=== PATIENT | male | born 1980 | race Two or more races ===

== ENCOUNTER 2021-08-17 01:03 | Inpatient (IN) | payer MEDICAID ==
[2021-08-17] VITALS (20 sets, daily range): BP systolic 96–152; BP diastolic 54–108
[~2021-08-17] VITALS: Ht 200.7 cm; Wt 190.1 kg
[2021-08-17] MEDS ORDERED: VANCOMYCIN 1GM/250ML 250 ML IV ONE ×2 (01:45)
[2021-08-17] MEDS ORDERED: DexAMETHasone SOD PHOS 10MG/1ML VIAL INJ IV ONE (01:45)
[2021-08-17] MEDS ORDERED: PIPERACILLIN-TAZO 4.5GM 100 ML IV ONE (01:45)
[2021-08-17] MEDS ORDERED: ETOMIDATE (2MG/ML) 20ML VIAL IV ONE ×2 (02:00→12:15)
[2021-08-17] MEDS ORDERED: SUCCINYLCHOLINE CHLORIDE 20 MG/ML 10ML VIAL IV ONE (02:00)
[2021-08-17 03:10] LABS: Basophils # (auto) 0 10 ^3/uL (0-0.2); Basophils % (auto) 0.1 % (0.0-2.0); Eosinophils # (auto) 0.1 10 ^3/uL (0-0.8); Eosinophils % (auto) 0.3 % (0.0-7.0); Hematocrit 46.2 % (41.0-53.0); Hemoglobin 15.1 g/dL (13.5-17.5); Lymphocytes # (auto) 1.2 10 ^3/uL (0.4-5.4); Lymphocytes % (auto) 6.9 % (10.0-50.0); Mean Corpuscular Hemoglobin 29.3 pg (28.0-32.0); Mean Corpuscular Hgb Conc. 32.8 g/dL (32.0-36.0); Mean Corpuscular Volume 89.3 fL (80.0-100.0); Monocytes # (auto) 1.3 10 ^3/uL (0-1.3); Monocytes % (auto) 7.4 % (0.0-12.0); Neutrophils # (auto) 14.7 10 ^3/uL (1.6-8.6); Neutrophils % (auto) 85.3 % (37.0-80.0); Nucleated Red Blood Cells % 0.8 %; Red Blood Cells 5.17 10^6/uL (4.5-5.90); Red Cell Distribution Width 16.4 % (11.8-14.3); White Blood Cell 17.2 10^3/uL (4.4-10.8)
[2021-08-17 03:27] LABS: Albumin 2.2 g/dL (3.4-5.0); BUN/Creatinine Ratio 14.9; Calcium 8.3 mg/dL (8.5-10.1); Potassium 4.5 mmol/L (3.5-5.1)
[2021-08-17 03:32] LABS: Bilirubin, Total 0.7 mg/dL (0.2-1.0); Total Protein 7.2 g/dL (6.4-8.2)
[2021-08-17] MEDS ORDERED: ROCURONIUM 10MG/ML 10ML VIAL IV ONE ×2 (11:50→12:15)
[2021-08-17] MEDS ORDERED: MIDAZOLAM DRIP 50 mg/50mL 50 ML IV ONE (11:50)
[2021-08-17] MEDS ORDERED: PROPOFOL 100 ML IV ONE (11:50)
[2021-08-17] MEDS: MIDAZOLAM DRIP 50 mg/50mL 50 ML IV SCH ×2 (12:23→23:32)
[2021-08-17] MEDS: PROPOFOL 100 ML IV SCH ×2 (12:23→23:32)
[2021-08-17] MEDS ORDERED: NITROGLYCERIN 0.4 MG SL TAB SL PRN ×2 (13:00→14:15)
[2021-08-17] MEDS ORDERED: MORPHINE SULFATE INJECTION 2 MG/ML SYRG IV PRN ×3 (13:00→14:15)
[2021-08-17] MEDS ORDERED: HEPARIN SODIUM (PORCINE) 5000 UNITS/ML 1ML VIAL IV ONE (13:15)
[2021-08-17] MEDS ORDERED: HEPARIN DRIP/D5W 100UNITS/ML 250 ML IV SCH (13:15)
[2021-08-17] MEDS ORDERED: ALBUTEROL SULF HFA 90MCG INH 200DOSE IN SCH (14:00)
[2021-08-17 14:06] LABS: Basophils # (auto) 0 10 ^3/uL (0-0.2); Basophils % (auto) 0.3 % (0.0-2.0); Eosinophils # (auto) 0 10 ^3/uL (0-0.8); Hematocrit 43.6 % (41.0-53.0); Hemoglobin 13.8 g/dL (13.5-17.5); Lymphocytes # (auto) 0.9 10 ^3/uL (0.4-5.4); Lymphocytes % (auto) 4.8 % (10.0-50.0); Mean Corpuscular Hemoglobin 28.1 pg (28.0-32.0); Mean Corpuscular Hgb Conc. 31.6 g/dL (32.0-36.0); Mean Corpuscular Volume 89.1 fL (80.0-100.0); Monocytes % (auto) 5.5 % (0.0-12.0); Neutrophils % (auto) 89.4 % (37.0-80.0); Nucleated Red Blood Cells % 0.1 %; Red Blood Cells 4.89 10^6/uL (4.5-5.90); Red Cell Distribution Width 16.5 % (11.8-14.3); White Blood Cell 17.9 10^3/uL (4.4-10.8)
[2021-08-17] MEDS ORDERED: HYDROcodone-ACET 5/325MG TAB PO PRN (14:15)
[2021-08-17] MEDS ORDERED: MORPHINE SULFATE 4 MG/ML SYR/VIAL IV PRN (14:15)
[2021-08-17] MEDS ORDERED: ONDANSETRON HCL 4 MG/2 ML VIAL IV PRN (14:15)
[2021-08-17] MEDS ORDERED: FAMOTIDINE (10MG/ML) 2ML VL IV ONE (14:15)
[2021-08-17] MEDS ORDERED: FUROSEMIDE 20 MG/2 ML VIAL IV ONE (14:15)
[2021-08-17] MEDS ORDERED: LORazepam 2MG/ML-1ML VIAL IV PRN (14:15)
[2021-08-17] MEDS ORDERED: ALBUMIN 25% 100 ML IV ONE (14:15)
[2021-08-17] MEDS ORDERED: LORazepam 0.5 MG TAB PO PRN (14:15)
[2021-08-17] MEDS ORDERED: DOCUSATE SOD 100 MG CAP PO PRN (14:15)
[2021-08-17] MEDS ORDERED: ALBUTEROL SULF HFA 90MCG INH 200DOSE IN PRN (14:15)
[2021-08-17] MEDS ORDERED: REMDESIVIR PER PHARMACY 0 ML IV SCH (14:15)
[2021-08-17] MEDS ORDERED: ALUM & MAG HYDROX-SIMETH LIQ(MAALOX) 30 ML PO PRN (14:15)
[2021-08-17] MEDS ORDERED: NOREPINEPHRINE 8 MG/250ML KIT 250 ML IV ONE (14:44)
[2021-08-17 15:03] LABS: INR 1.22 (0.9-1.15); Partial Thromboplastin Time 27.9 sec (23.6-33.0)
[2021-08-17] MEDS: NOREPINEPHRINE 8 MG/250ML KIT 250 ML IV SCH (15:40)
[2021-08-17 15:47] LABS: Albumin 1.9 g/dL (3.4-5.0); Anion Gap 6 (5-15); Blood Urea Nitrogen 27 mg/dL (7-18); Calcium 7.8 mg/dL (8.5-10.1); Carbon Dioxide 29 mmol/L (21-32); Chloride 106 mmol/L (98-107); Glucose 124 mg/dL (74-106); Potassium 5.1 mmol/L (3.5-5.1); Sodium 141 mmol/L (136-145)
[2021-08-17 15:56] LABS: Alanine Aminotransferase 33 U/L (16-61); Alkaline Phosphatase 64 U/L (45-117); Aspartate Aminotransferase 24 U/L (15-37); Bilirubin, Total 0.7 mg/dL (0.2-1.0); GFR African American 53 mL/min; GFR Non-African American 44 mL/min; Total Protein 6.9 g/dL (6.4-8.2)
[2021-08-17 15:56] LABS: Amphetamine Screen, Urine NEGATIVE (NEGATIVE); Barbiturate Scree,Urine NEGATIVE (NEGATIVE); Benzodiazephine Screen, Urine NEGATIVE (NEGATIVE); Cannabinoid Screen, Urine NEGATIVE (NEGATIVE); Cocaine Screen, Urine NEGATIVE (NEGATIVE); Opiate Scree,Urine NEGATIVE (NEGATIVE); Phencyclidine Screen, Urine NEGATIVE (NEGATIVE)
[2021-08-17 15:59] LABS: Urine Bacteria NONE SEEN /hpf (None Seen); Urine Blood 3+ /uL (Negative); Urine Hyaline Cast FEW /lpf (0 - 2); Urine Mucus FEW (None Seen); Urine Specific Gravity 1.025 (1.001-1.035); Urine WBC 11 /hpf (0 - 3)
[2021-08-17 16:01] LABS: Alcohol, Urine < 3.0 mg/dL (0-10)
[2021-08-17 16:05] LABS: Cholesterol 82 mg/dL (< 200); Triglycerides 183 mg/dL (< 150)
[2021-08-17 16:07] LABS: HDL Cholesterol 20 mg/dL (40-59); LDL Cholesterol 48 mg/dL (< 100)
[2021-08-17 16:08] LABS: Thyroid Stimulating Hormone 0.65 uIU/mL (0.358-3.74)
[2021-08-17 16:13] LABS: CRP High Sensitivity > 19.0 mg/dL (< 0.3)
[2021-08-17] MEDS: HEPARIN DRIP/D5W 100UNITS/ML 250 ML IV SCH (17:03)
[2021-08-17] MEDS ORDERED: REMDESIVIR PER PHARMACY IV SCH (20:00)
[2021-08-17] MEDS: CEFEPIME 1 GM in SODIUM CHL 0.9% 50 ML IV SCH (22:00)
[2021-08-17] MEDS: ALBUMIN 25% 100 ML IV SCH (22:00)
[2021-08-17] MEDS ORDERED: BUDESONIDE (INHALATION) 180 MCG IH IN SCH (22:00)
[2021-08-17] MEDS: FAMOTIDINE (10MG/ML) 2ML VL IV SCH (22:17)
[2021-08-17] MEDS: DOXYCYCLINE 100MG/250ML 250 ML IV SCH (22:17)
[2021-08-17] MEDS: fentaNYL Drip 2500mCg/250mlNS 250 ML IV SCH (23:34)
[2021-08-18] VITALS (98 sets, daily range): BP systolic 97–139; BP diastolic 58–87
[2021-08-18 00:08] LABS: INR 1.21 (0.9-1.15); Partial Thromboplastin Time 28.3 sec (23.6-33.0)
[2021-08-18] MEDS ORDERED: HEPARIN SODIUM (PORCINE) 5000 UNITS/ML 1ML VIAL IV ONE (01:45)
[2021-08-18] MEDS: MIDAZOLAM DRIP 50 mg/50mL 50 ML IV SCH ×2 (01:52→21:29)
[2021-08-18] MEDS: HEPARIN DRIP/D5W 100UNITS/ML 250 ML IV SCH ×2 (02:45→17:14)
[2021-08-18 05:13] LABS: Basophils # (auto) 0 10 ^3/uL (0-0.2); Basophils % (auto) 0.2 % (0.0-2.0); Eosinophils # (auto) 0.1 10 ^3/uL (0-0.8); Eosinophils % (auto) 0.3 % (0.0-7.0); Hematocrit 38.9 % (41.0-53.0); Hemoglobin 12.5 g/dL (13.5-17.5); Lymphocytes # (auto) 1.9 10 ^3/uL (0.4-5.4); Lymphocytes % (auto) 11.7 % (10.0-50.0); Mean Corpuscular Hemoglobin 28.2 pg (28.0-32.0); Mean Corpuscular Hgb Conc. 32.1 g/dL (32.0-36.0); Mean Corpuscular Volume 87.9 fL (80.0-100.0); Monocytes # (auto) 1.2 10 ^3/uL (0-1.3); Monocytes % (auto) 7.3 % (0.0-12.0); Neutrophils # (auto) 12.7 10 ^3/uL (1.6-8.6); Neutrophils % (auto) 80.5 % (37.0-80.0); Nucleated Red Blood Cells % 0.2 %; Red Blood Cells 4.42 10^6/uL (4.5-5.90); Red Cell Distribution Width 16.4 % (11.8-14.3); White Blood Cell 15.8 10^3/uL (4.4-10.8)
[2021-08-18] MEDS: FUROSEMIDE 20 MG/2 ML VIAL IV SCH ×2 (05:29→17:41)
[2021-08-18 05:31] LABS: Potassium 4.1 mmol/L (3.5-5.1)
[2021-08-18] MEDS: ALBUMIN 25% 100 ML IV SCH ×2 (05:31→14:15)
[2021-08-18 05:39] LABS: BUN/Creatinine Ratio 15.6; Bilirubin, Total 0.9 mg/dL (0.2-1.0); Calcium 7.9 mg/dL (8.5-10.1); Magnesium 2.5 mg/dL (1.6-2.6); Total Protein 6.4 g/dL (6.4-8.2); Uric Acid 8.6 mg/dL (3.5-7.2)
[2021-08-18] MEDS: PROPOFOL 100 ML IV SCH ×3 (06:02→22:33)
[2021-08-18] MEDS: CEFEPIME 1 GM in SODIUM CHL 0.9% 50 ML IV SCH ×3 (06:30→21:25)
[2021-08-18] MEDS: ASCORBIC ACID 500 MG TAB PO SCH (08:13)
[2021-08-18 09:04] LABS: INR 1.25 (0.9-1.15)
[2021-08-18] MEDS ORDERED: HEPARIN DRIP/D5W 100UNITS/ML 250 ML IV SCH (10:00)
[2021-08-18] MEDS ORDERED: levoFLOXacin 500MG 100 ML IV SCH (10:00)
[2021-08-18] MEDS ORDERED: DexAMETHasone SOD PHOS 10MG/1ML VIAL INJ IV SCH (10:00)
[2021-08-18] MEDS ORDERED: ZINC SULFATE 220mg CAP or TAB PO SCH (10:00)
[2021-08-18] MEDS ORDERED: CHOLECALCIFEROL (VITD3) 2,000 UNIT CAP/TAB PO SCH (10:00)
[2021-08-18] MEDS: DOXYCYCLINE 100MG/250ML 250 ML IV SCH ×2 (10:21→23:56)
[2021-08-18] MEDS: DexAMETHasone SOD PHOS 10MG/1ML VIAL INJ IV SCH (10:21)
[2021-08-18] MEDS: FAMOTIDINE (10MG/ML) 2ML VL IV SCH ×2 (10:21→22:06)
[2021-08-18] MEDS: ZINC SULFATE 220mg CAP or TAB PO SCH (10:22)
[2021-08-18] MEDS: CHOLECALCIFEROL (VITD3) 2,000 UNIT CAP/TAB PO SCH (10:22)
[2021-08-18] MEDS: ASCORBIC ACID 1,000 MG TAB PO SCH (10:22)
[2021-08-18] MEDS: IVERMECTIN 3 MG TAB PO SCH (10:22)
[2021-08-18] MEDS: NOREPINEPHRINE 8 MG/250ML KIT 250 ML IV SCH (15:00)
[2021-08-18 16:29] LABS: INR 1.2 (0.9-1.15); Partial Thromboplastin Time 42.7 sec (23.6-33.0)
[2021-08-18] MEDS: fentaNYL Drip 2500mCg/250mlNS 250 ML IV SCH (22:15)
[2021-08-18 23:36] LABS: INR 1.21 (0.9-1.15); Partial Thromboplastin Time 51.3 sec (23.6-33.0)
[2021-08-19] VITALS (102 sets, daily range): BP systolic 116–136; BP diastolic 61–84
[2021-08-19] MEDS: MIDAZOLAM DRIP 50 mg/50mL 50 ML IV SCH ×3 (00:36→20:26)
[2021-08-19] MEDS: HEPARIN DRIP/D5W 100UNITS/ML 250 ML IV SCH (02:13)
[2021-08-19] MEDS: PROPOFOL 100 ML IV SCH ×4 (02:13→21:37)
[2021-08-19] MEDS: CEFEPIME 1 GM in SODIUM CHL 0.9% 50 ML IV SCH ×2 (06:13→23:42)
[2021-08-19] MEDS: FUROSEMIDE 20 MG/2 ML VIAL IV SCH ×2 (06:13→18:00)
[2021-08-19 06:27] LABS: Basophils # (auto) 0 10 ^3/uL (0-0.2); Basophils % (auto) 0.2 % (0.0-2.0); Eosinophils # (auto) 0 10 ^3/uL (0-0.8); Hematocrit 35.8 % (41.0-53.0); Hemoglobin 11.6 g/dL (13.5-17.5); Lymphocytes # (auto) 1.9 10 ^3/uL (0.4-5.4); Lymphocytes % (auto) 10.8 % (10.0-50.0); Mean Corpuscular Hemoglobin 28.3 pg (28.0-32.0); Mean Corpuscular Hgb Conc. 32.4 g/dL (32.0-36.0); Mean Corpuscular Volume 87.2 fL (80.0-100.0); Monocytes # (auto) 1.1 10 ^3/uL (0-1.3); Monocytes % (auto) 6.1 % (0.0-12.0); Neutrophils # (auto) 14.3 10 ^3/uL (1.6-8.6); Neutrophils % (auto) 82.9 % (37.0-80.0); Red Blood Cells 4.11 10^6/uL (4.5-5.90); Red Cell Distribution Width 16.1 % (11.8-14.3); White Blood Cell 17.2 10^3/uL (4.4-10.8)
[2021-08-19 06:41] LABS: Albumin 2.4 g/dL (3.4-5.0); BUN/Creatinine Ratio 14.2; Calcium 8.5 mg/dL (8.5-10.1); Potassium 3.8 mmol/L (3.5-5.1)
[2021-08-19 06:43] LABS: Bilirubin, Total 1.1 mg/dL (0.2-1.0); Total Protein 6.9 g/dL (6.4-8.2)
[2021-08-19 06:46] LABS: INR 1.18 (0.9-1.15); Partial Thromboplastin Time 45.6 sec (23.6-33.0)
[2021-08-19] MEDS: ASCORBIC ACID 500 MG TAB PO SCH (08:25)
[2021-08-19] MEDS: DOXYCYCLINE 100MG/250ML 250 ML IV SCH ×2 (10:02→21:38)
[2021-08-19] MEDS: FAMOTIDINE (10MG/ML) 2ML VL IV SCH (10:02)
[2021-08-19] MEDS: DexAMETHasone SOD PHOS 10MG/1ML VIAL INJ IV SCH (10:02)
[2021-08-19] MEDS: ZINC SULFATE 220mg CAP or TAB PO SCH (10:03)
[2021-08-19] MEDS: CHOLECALCIFEROL (VITD3) 2,000 UNIT CAP/TAB PO SCH (10:03)
[2021-08-19] MEDS: ASCORBIC ACID 1,000 MG TAB PO SCH (10:03)
[2021-08-19] MEDS: IVERMECTIN 3 MG TAB PO SCH (10:03)
[2021-08-19 12:03] LABS: INR 1.16 (0.9-1.15)
[2021-08-19] MEDS: NOREPINEPHRINE 8 MG/250ML KIT 250 ML IV SCH (15:00)
[2021-08-19] MEDS ORDERED: ENOXAPARIN SOD 150 MG/1 ML SYRINGE SC ONE (15:30)
[2021-08-19] MEDS: fentaNYL Drip 2500mCg/250mlNS 250 ML IV SCH (21:45)
[2021-08-20] VITALS (101 sets, daily range): BP systolic 107–158; BP diastolic 59–92
[2021-08-20] MEDS: MIDAZOLAM DRIP 50 mg/50mL 50 ML IV SCH ×7 (00:08→20:00)
[2021-08-20] MEDS: PROPOFOL 100 ML IV SCH ×7 (00:09→20:00)
[2021-08-20] MEDS: ENOXAPARIN SOD 150 MG/1 ML SYRINGE SC SCH ×2 (03:23→15:00)
[2021-08-20 05:20] LABS: Basophils # (auto) 0 10 ^3/uL (0-0.2); Basophils % (auto) 0.3 % (0.0-2.0); Eosinophils # (auto) 0 10 ^3/uL (0-0.8); Hematocrit 35.5 % (41.0-53.0); Hemoglobin 11.7 g/dL (13.5-17.5); Lymphocytes # (auto) 1.6 10 ^3/uL (0.4-5.4); Mean Corpuscular Hgb Conc. 32.9 g/dL (32.0-36.0); Mean Corpuscular Volume 88.1 fL (80.0-100.0); Monocytes # (auto) 1.2 10 ^3/uL (0-1.3); Monocytes % (auto) 8.4 % (0.0-12.0); Neutrophils # (auto) 10.9 10 ^3/uL (1.6-8.6); Neutrophils % (auto) 79.3 % (37.0-80.0); Red Blood Cells 4.03 10^6/uL (4.5-5.90); Red Cell Distribution Width 16.3 % (11.8-14.3); White Blood Cell 13.8 10^3/uL (4.4-10.8)
[2021-08-20 05:36] LABS: Albumin 2.2 g/dL (3.4-5.0); Calcium 8.6 mg/dL (8.5-10.1); Potassium 4.5 mmol/L (3.5-5.1)
[2021-08-20 05:38] LABS: BUN/Creatinine Ratio 16.3
[2021-08-20 05:48] LABS: Bilirubin, Total 0.7 mg/dL (0.2-1.0)
[2021-08-20] MEDS: ZINC SULFATE 220mg CAP or TAB PO SCH (08:51)
[2021-08-20] MEDS: ASCORBIC ACID 1,000 MG TAB PO SCH (08:52)
[2021-08-20] MEDS: IVERMECTIN 3 MG TAB PO SCH (08:52)
[2021-08-20] MEDS: FAMOTIDINE (10MG/ML) 2ML VL IV SCH (08:53)
[2021-08-20] MEDS: CHOLECALCIFEROL (VITD3) 2,000 UNIT CAP/TAB PO SCH (08:54)
[2021-08-20] MEDS: DexAMETHasone SOD PHOS 10MG/1ML VIAL INJ IV SCH (08:54)
[2021-08-20] MEDS: ASCORBIC ACID 500 MG TAB PO SCH (08:54)
[2021-08-20] MEDS: DOXYCYCLINE 100MG/250ML 250 ML IV SCH ×2 (08:55→22:24)
[2021-08-20] MEDS: CEFEPIME 1 GM in SODIUM CHL 0.9% 50 ML IV SCH (09:00)
[2021-08-20] MEDS: NOREPINEPHRINE 8 MG/250ML KIT 250 ML IV SCH (15:00)
[2021-08-20] MEDS ORDERED: CEFTRIAXONE SODIUM 2 GM in D5W 5% 50 ML IV ONE (16:00)
[2021-08-20] MEDS: fentaNYL Drip 2500mCg/250mlNS 250 ML IV SCH (22:15)
[2021-08-21] VITALS (102 sets, daily range): BP systolic 94–152; BP diastolic 52–89
[2021-08-21] MEDS: PROPOFOL 100 ML IV SCH ×6 (03:00→20:55)
[2021-08-21] MEDS: MIDAZOLAM DRIP 50 mg/50mL 50 ML IV SCH ×5 (03:00→16:58)
[2021-08-21] MEDS: ENOXAPARIN SOD 150 MG/1 ML SYRINGE SC SCH ×2 (03:31→20:15)
[2021-08-21 04:21] LABS: Basophils # (auto) 0 10 ^3/uL (0-0.2); Basophils % (auto) 0.2 % (0.0-2.0); Eosinophils # (auto) 0.1 10 ^3/uL (0-0.8); Eosinophils % (auto) 0.7 % (0.0-7.0); Hematocrit 37.5 % (41.0-53.0); Hemoglobin 12.3 g/dL (13.5-17.5); Lymphocytes # (auto) 1.6 10 ^3/uL (0.4-5.4); Lymphocytes % (auto) 15.4 % (10.0-50.0); Mean Corpuscular Hgb Conc. 32.8 g/dL (32.0-36.0); Mean Corpuscular Volume 88.5 fL (80.0-100.0); Monocytes # (auto) 0.9 10 ^3/uL (0-1.3); Monocytes % (auto) 8.3 % (0.0-12.0); Neutrophils % (auto) 75.4 % (37.0-80.0); Nucleated Red Blood Cells % 0.1 %; Red Blood Cells 4.23 10^6/uL (4.5-5.90); Red Cell Distribution Width 16.5 % (11.8-14.3); White Blood Cell 10.7 10^3/uL (4.4-10.8)
[2021-08-21 04:37] LABS: Calcium 8.6 mg/dL (8.5-10.1); Potassium 4.4 mmol/L (3.5-5.1)
[2021-08-21 04:40] LABS: Albumin 2.1 g/dL (3.4-5.0); BUN/Creatinine Ratio 19.2
[2021-08-21 04:44] LABS: Total Protein 6.8 g/dL (6.4-8.2)
[2021-08-21] MEDS: FAMOTIDINE (10MG/ML) 2ML VL IV SCH (09:38)
[2021-08-21] MEDS: DexAMETHasone SOD PHOS 10MG/1ML VIAL INJ IV SCH (09:38)
[2021-08-21] MEDS: DOXYCYCLINE 100MG/250ML 250 ML IV SCH (09:39)
[2021-08-21] MEDS: CEFTRIAXONE SODIUM 2 GM in D5W 5% 50 ML IV SCH (09:39)
[2021-08-21] MEDS: IVERMECTIN 3 MG TAB PO SCH (09:40)
[2021-08-21] MEDS: ZINC SULFATE 220mg CAP or TAB PO SCH (09:40)
[2021-08-21] MEDS: ASCORBIC ACID 1,000 MG TAB PO SCH (09:40)
[2021-08-21] MEDS: CHOLECALCIFEROL (VITD3) 2,000 UNIT CAP/TAB PO SCH (09:41)
[2021-08-21] MEDS: NOREPINEPHRINE 8 MG/250ML KIT 250 ML IV SCH (15:00)
[2021-08-21] MEDS ORDERED: FUROSEMIDE 40 MG/4 ML VIAL IV ONE (17:00)
[2021-08-22] VITALS (101 sets, daily range): BP systolic 87–140; BP diastolic 46–89
[2021-08-22] MEDS: ENOXAPARIN SOD 150 MG/1 ML SYRINGE SC SCH ×2 (04:34→13:40)
[2021-08-22] MEDS: Jevity 1.2 Cal/Fiber 1 Liter GT SCH (04:35)
[2021-08-22 04:48] LABS: Basophils # (auto) 0 10 ^3/uL (0-0.2); Basophils % (auto) 0.2 % (0.0-2.0); Eosinophils # (auto) 0.1 10 ^3/uL (0-0.8); Eosinophils % (auto) 0.8 % (0.0-7.0); Hematocrit 40.3 % (41.0-53.0); Hemoglobin 13.2 g/dL (13.5-17.5); Lymphocytes # (auto) 1.3 10 ^3/uL (0.4-5.4); Lymphocytes % (auto) 9.8 % (10.0-50.0); Mean Corpuscular Hgb Conc. 32.8 g/dL (32.0-36.0); Mean Corpuscular Volume 88.6 fL (80.0-100.0); Monocytes # (auto) 0.9 10 ^3/uL (0-1.3); Monocytes % (auto) 7.1 % (0.0-12.0); Neutrophils # (auto) 10.6 10 ^3/uL (1.6-8.6); Neutrophils % (auto) 82.1 % (37.0-80.0); Nucleated Red Blood Cells % 0.1 %; Red Blood Cells 4.54 10^6/uL (4.5-5.90); Red Cell Distribution Width 16.2 % (11.8-14.3); White Blood Cell 12.9 10^3/uL (4.4-10.8)
[2021-08-22 05:05] LABS: Potassium 4.8 mmol/L (3.5-5.1)
[2021-08-22 05:08] LABS: BUN/Creatinine Ratio 22.3
[2021-08-22] MEDS: PROPOFOL 100 ML IV SCH ×6 (05:11→21:32)
[2021-08-22] MEDS: fentaNYL Drip 2500mCg/250mlNS 250 ML IV SCH (05:44)
[2021-08-22] MEDS ORDERED: CLINDAMYCIN 600MG IV 50 ML IV ONE (08:15)
[2021-08-22] MEDS: DexAMETHasone SOD PHOS 10MG/1ML VIAL INJ IV SCH (10:25)
[2021-08-22] MEDS: FAMOTIDINE (10MG/ML) 2ML VL IV SCH ×2 (10:25→21:31)
[2021-08-22] MEDS: FUROSEMIDE 40 MG/4 ML VIAL IV SCH (10:25)
[2021-08-22] MEDS: ZINC SULFATE 220mg CAP or TAB PO SCH (10:26)
[2021-08-22] MEDS: IVERMECTIN 3 MG TAB PO SCH (10:26)
[2021-08-22] MEDS: CHOLECALCIFEROL (VITD3) 2,000 UNIT CAP/TAB PO SCH (10:26)
[2021-08-22] MEDS: ASCORBIC ACID 1,000 MG TAB PO SCH (10:26)
[2021-08-22] MEDS: CEFTRIAXONE SODIUM 2 GM in D5W 5% 50 ML IV SCH (10:28)
[2021-08-22] MEDS: MIDAZOLAM DRIP 50 mg/50mL 50 ML IV SCH ×2 (11:38→17:51)
[2021-08-22] MEDS: NOREPINEPHRINE 8 MG/250ML KIT 250 ML IV SCH (12:45)
[2021-08-22 13:52] LABS: Urine Bacteria NONE SEEN /hpf (None Seen); Urine Blood 1+ /uL (Negative); Urine Mucus MANY (None Seen); Urine Specific Gravity 1.014 (1.001-1.035); Urine WBC 221 /hpf (0 - 3)
[2021-08-22 14:04] LABS: Protein, Urine 67.2 mg/dL (0.0-11.9)
[2021-08-22] MEDS: CLINDAMYCIN 600MG IV 50 ML IV SCH ×2 (14:28→21:30)
[2021-08-23] VITALS (104 sets, daily range): BP systolic 86–136; BP diastolic 48–87
[2021-08-23] MEDS: PROPOFOL 100 ML IV SCH ×7 (00:20→23:04)
[2021-08-23] MEDS: ENOXAPARIN SOD 150 MG/1 ML SYRINGE SC SCH ×2 (03:02→13:27)
[2021-08-23 04:35] LABS: Basophils # (auto) 0.1 10 ^3/uL (0-0.2); Basophils % (auto) 0.4 % (0.0-2.0); Eosinophils # (auto) 0.1 10 ^3/uL (0-0.8); Eosinophils % (auto) 0.4 % (0.0-7.0); Hemoglobin 12.5 g/dL (13.5-17.5); Lymphocytes # (auto) 1.4 10 ^3/uL (0.4-5.4); Lymphocytes % (auto) 9.4 % (10.0-50.0); Mean Corpuscular Hemoglobin 29.3 pg (28.0-32.0); Mean Corpuscular Volume 88.8 fL (80.0-100.0); Monocytes % (auto) 6.3 % (0.0-12.0); Neutrophils # (auto) 12.8 10 ^3/uL (1.6-8.6); Neutrophils % (auto) 83.5 % (37.0-80.0); Nucleated Red Blood Cells % 0.2 %; Red Blood Cells 4.28 10^6/uL (4.5-5.90); White Blood Cell 15.3 10^3/uL (4.4-10.8)
[2021-08-23 04:50] LABS: Potassium 4.4 mmol/L (3.5-5.1)
[2021-08-23 05:03] LABS: Calcium 9.1 mg/dL (8.5-10.1)
[2021-08-23] MEDS: CLINDAMYCIN 600MG IV 50 ML IV SCH ×3 (05:28→21:51)
[2021-08-23] MEDS: fentaNYL Drip 2500mCg/250mlNS 250 ML IV SCH (09:15)
[2021-08-23] MEDS: NOREPINEPHRINE 8 MG/250ML KIT 250 ML IV SCH (09:20)
[2021-08-23] MEDS: DexAMETHasone SOD PHOS 10MG/1ML VIAL INJ IV SCH (10:08)
[2021-08-23] MEDS: FUROSEMIDE 40 MG/4 ML VIAL IV SCH (10:08)
[2021-08-23] MEDS: CHOLECALCIFEROL (VITD3) 2,000 UNIT CAP/TAB PO SCH (10:08)
[2021-08-23] MEDS: FAMOTIDINE (10MG/ML) 2ML VL IV SCH ×2 (10:08→21:50)
[2021-08-23] MEDS: ZINC SULFATE 220mg CAP or TAB PO SCH (10:08)
[2021-08-23] MEDS: ASCORBIC ACID 1,000 MG TAB PO SCH (10:08)
[2021-08-23] MEDS: CEFTRIAXONE SODIUM 2 GM in D5W 5% 50 ML IV SCH (10:09)
[2021-08-23] MEDS: MIDAZOLAM DRIP 50 mg/50mL 50 ML IV SCH ×3 (10:10→22:50)
[2021-08-23] MEDS ORDERED: SENNA 8.6 MG TAB PO ONE (11:45)
[2021-08-23] MEDS: Jevity 1.2 Cal/Fiber 1 Liter GT SCH (15:57)
[2021-08-24] VITALS (103 sets, daily range): BP systolic 96–160; BP diastolic 57–101
[2021-08-24] MEDS: ENOXAPARIN SOD 150 MG/1 ML SYRINGE SC SCH ×2 (02:40→15:00)
[2021-08-24 04:32] LABS: Basophils # (auto) 0.1 10 ^3/uL (0-0.2); Basophils % (auto) 0.8 % (0.0-2.0); Eosinophils # (auto) 0.1 10 ^3/uL (0-0.8); Eosinophils % (auto) 1.3 % (0.0-7.0); Lymphocytes # (auto) 1.9 10 ^3/uL (0.4-5.4); Monocytes # (auto) 1.1 10 ^3/uL (0-1.3)
[2021-08-24 04:36] LABS: Hematocrit 39.2 % (41.0-53.0); Hemoglobin 12.7 g/dL (13.5-17.5); Lymphocytes % (auto) 16.3 % (10.0-50.0); Mean Corpuscular Hemoglobin 28.7 pg (28.0-32.0); Mean Corpuscular Hgb Conc. 32.4 g/dL (32.0-36.0); Mean Corpuscular Volume 88.4 fL (80.0-100.0); Monocytes % (auto) 9.6 % (0.0-12.0); Neutrophils # (auto) 8.3 10 ^3/uL (1.6-8.6); Nucleated Red Blood Cells % 0.1 %; Red Blood Cells 4.43 10^6/uL (4.5-5.90); Red Cell Distribution Width 16.1 % (11.8-14.3); White Blood Cell 11.5 10^3/uL (4.4-10.8)
[2021-08-24] MEDS: PROPOFOL 100 ML IV SCH ×3 (04:41→20:15)
[2021-08-24 04:56] LABS: BUN/Creatinine Ratio 35.8; Calcium 9.2 mg/dL (8.5-10.1); Potassium 4.2 mmol/L (3.5-5.1)
[2021-08-24] MEDS: MIDAZOLAM DRIP 50 mg/50mL 50 ML IV SCH (05:10)
[2021-08-24] MEDS: CLINDAMYCIN 600MG IV 50 ML IV SCH ×3 (05:44→21:39)
[2021-08-24] MEDS: CEFTRIAXONE SODIUM 2 GM in D5W 5% 50 ML IV SCH (09:30)
[2021-08-24] MEDS: FAMOTIDINE (10MG/ML) 2ML VL IV SCH ×2 (09:30→21:38)
[2021-08-24] MEDS: ASCORBIC ACID 1,000 MG TAB PO SCH (09:30)
[2021-08-24] MEDS: CHOLECALCIFEROL (VITD3) 2,000 UNIT CAP/TAB PO SCH (09:30)
[2021-08-24] MEDS: DexAMETHasone SOD PHOS 10MG/1ML VIAL INJ IV SCH (09:30)
[2021-08-24] MEDS: ZINC SULFATE 220mg CAP or TAB PO SCH (09:30)
[2021-08-24] MEDS: NOREPINEPHRINE 8 MG/250ML KIT 250 ML IV SCH (15:00)
[2021-08-24] MEDS: fentaNYL Drip 2500mCg/250mlNS 250 ML IV SCH (18:02)
[2021-08-24] MEDS: Jevity 1.2 Cal/Fiber 1 Liter GT SCH (18:04)
[2021-08-24] MEDS: SENNA 8.6 MG TAB PO PRN (21:39)
[2021-08-25] VITALS (100 sets, daily range): BP systolic 101–161; BP diastolic 61–111
[2021-08-25] MEDS: ENOXAPARIN SOD 150 MG/1 ML SYRINGE SC SCH ×2 (03:19→15:00)
[2021-08-25 04:55] LABS: Basophils # (auto) 0.1 10 ^3/uL (0-0.2); Basophils % (auto) 0.5 % (0.0-2.0); Eosinophils # (auto) 0.2 10 ^3/uL (0-0.8); Hemoglobin 12.9 g/dL (13.5-17.5)
[2021-08-25] MEDS: ACETAMINOPHEN 325 MG TAB PO PRN (04:55)
[2021-08-25 04:58] LABS: Eosinophils % (auto) 1.3 % (0.0-7.0); Hematocrit 39.8 % (41.0-53.0); Lymphocytes % (auto) 23.1 % (10.0-50.0); Mean Corpuscular Hemoglobin 28.7 pg (28.0-32.0); Mean Corpuscular Hgb Conc. 32.4 g/dL (32.0-36.0); Mean Corpuscular Volume 88.5 fL (80.0-100.0); Monocytes # (auto) 1.4 10 ^3/uL (0-1.3); Monocytes % (auto) 10.6 % (0.0-12.0); Neutrophils # (auto) 8.4 10 ^3/uL (1.6-8.6); Neutrophils % (auto) 64.5 % (37.0-80.0); Red Blood Cells 4.49 10^6/uL (4.5-5.90)
[2021-08-25 05:11] LABS: Potassium 3.9 mmol/L (3.5-5.1)
[2021-08-25 05:15] LABS: BUN/Creatinine Ratio 34.2; Calcium 9.4 mg/dL (8.5-10.1)
[2021-08-25] MEDS: CLINDAMYCIN 600MG IV 50 ML IV SCH ×3 (05:58→22:29)
[2021-08-25] MEDS: PROPOFOL 100 ML IV SCH ×3 (06:24→23:46)
[2021-08-25] MEDS: DexAMETHasone SOD PHOS 10MG/1ML VIAL INJ IV SCH (09:44)
[2021-08-25] MEDS: ASCORBIC ACID 1,000 MG TAB PO SCH (09:44)
[2021-08-25] MEDS: ZINC SULFATE 220mg CAP or TAB PO SCH (09:44)
[2021-08-25] MEDS: FAMOTIDINE (10MG/ML) 2ML VL IV SCH ×2 (09:44→22:29)
[2021-08-25] MEDS: CHOLECALCIFEROL (VITD3) 2,000 UNIT CAP/TAB PO SCH (09:45)
[2021-08-25] MEDS: CEFTRIAXONE SODIUM 2 GM in D5W 5% 50 ML IV SCH (09:52)
[2021-08-25] MEDS: MIDAZOLAM DRIP 50 mg/50mL 50 ML IV SCH (12:15)
[2021-08-25] MEDS: NOREPINEPHRINE 8 MG/250ML KIT 250 ML IV SCH (15:00)
[2021-08-25] MEDS: fentaNYL Drip 2500mCg/250mlNS 250 ML IV SCH (22:15)
[2021-08-26] VITALS (69 sets, daily range): BP systolic 114–165; BP diastolic 76–110
[2021-08-26] MEDS: ENOXAPARIN SOD 150 MG/1 ML SYRINGE SC SCH ×2 (03:00→15:23)
[2021-08-26 04:23] LABS: Basophils # (auto) 0.1 10 ^3/uL (0-0.2); Eosinophils # (auto) 0.1 10 ^3/uL (0-0.8); Eosinophils % (auto) 1.2 % (0.0-7.0); Monocytes # (auto) 1.2 10 ^3/uL (0-1.3); Nucleated Red Blood Cells % 0.1 %; White Blood Cell 11.5 10^3/uL (4.4-10.8)
[2021-08-26 04:26] LABS: Basophils % (auto) 1.2 % (0.0-2.0); Hematocrit 39.1 % (41.0-53.0); Hemoglobin 12.8 g/dL (13.5-17.5); Lymphocytes # (auto) 1.9 10 ^3/uL (0.4-5.4); Lymphocytes % (auto) 16.9 % (10.0-50.0); Mean Corpuscular Hemoglobin 28.9 pg (28.0-32.0); Mean Corpuscular Hgb Conc. 32.7 g/dL (32.0-36.0); Mean Corpuscular Volume 88.4 fL (80.0-100.0); Monocytes % (auto) 10.6 % (0.0-12.0); Neutrophils % (auto) 70.1 % (37.0-80.0); Red Blood Cells 4.42 10^6/uL (4.5-5.90)
[2021-08-26 04:36] LABS: BUN/Creatinine Ratio 34.6; Calcium 9.6 mg/dL (8.5-10.1); Potassium 3.7 mmol/L (3.5-5.1)
[2021-08-26] MEDS: CLINDAMYCIN 600MG IV 50 ML IV SCH ×2 (06:00→13:06)
[2021-08-26] MEDS: DexAMETHasone SOD PHOS 10MG/1ML VIAL INJ IV SCH (09:59)
[2021-08-26] MEDS: ZINC SULFATE 220mg CAP or TAB PO SCH (10:00)
[2021-08-26] MEDS: CEFTRIAXONE SODIUM 2 GM in D5W 5% 50 ML IV SCH (10:00)
[2021-08-26] MEDS: ASCORBIC ACID 1,000 MG TAB PO SCH (10:00)
[2021-08-26] MEDS: CHOLECALCIFEROL (VITD3) 2,000 UNIT CAP/TAB PO SCH (10:00)
[2021-08-26] MEDS: FAMOTIDINE (10MG/ML) 2ML VL IV SCH ×2 (10:00→21:34)
[2021-08-26] MEDS: MIDAZOLAM DRIP 50 mg/50mL 50 ML IV SCH (12:15)
[2021-08-26] MEDS ORDERED: ceFAZolin 1GM/50ML 50 ML IV ONE (13:30)
[2021-08-26] MEDS: NOREPINEPHRINE 8 MG/250ML KIT 250 ML IV SCH (15:00)
[2021-08-26] MEDS: ACETAMINOPHEN 325 MG TAB PO PRN (20:54)
[2021-08-26] MEDS: ceFAZolin 1GM/50ML 50 ML IV SCH (21:34)
[2021-08-26] MEDS: fentaNYL Drip 2500mCg/250mlNS 250 ML IV SCH (22:15)
[2021-08-26] MEDS: LORazepam 0.5 MG TAB PO PRN (23:00)
[2021-08-26] MEDS ORDERED: IBUPROFEN 600 MG TAB PO ONE (23:45)
[2021-08-27] VITALS (11 sets, daily range): BP systolic 105–144; BP diastolic 64–94
[2021-08-27] MEDS: ENOXAPARIN SOD 150 MG/1 ML SYRINGE SC SCH ×2 (03:41→14:00)
[2021-08-27 04:48] LABS: BUN/Creatinine Ratio 31.5; Calcium 9.4 mg/dL (8.5-10.1); Potassium 3.6 mmol/L (3.5-5.1)
[2021-08-27 04:54] LABS: Basophils # (auto) 0.1 10 ^3/uL (0-0.2); Eosinophils # (auto) 0 10 ^3/uL (0-0.8); Hemoglobin 12.6 g/dL (13.5-17.5)
[2021-08-27 04:58] LABS: Basophils % (auto) 0.4 % (0.0-2.0); Eosinophils % (auto) 0.1 % (0.0-7.0); Hematocrit 39.1 % (41.0-53.0); Lymphocytes # (auto) 1.5 10 ^3/uL (0.4-5.4); Lymphocytes % (auto) 7.8 % (10.0-50.0); Mean Corpuscular Hemoglobin 28.7 pg (28.0-32.0); Mean Corpuscular Hgb Conc. 32.2 g/dL (32.0-36.0); Monocytes % (auto) 5.4 % (0.0-12.0); Neutrophils # (auto) 16.5 10 ^3/uL (1.6-8.6); Neutrophils % (auto) 86.3 % (37.0-80.0); Red Blood Cells 4.39 10^6/uL (4.5-5.90); Red Cell Distribution Width 15.8 % (11.8-14.3); White Blood Cell 19.1 10^3/uL (4.4-10.8)
[2021-08-27] MEDS: ACETAMINOPHEN 325 MG TAB PO PRN (06:19)
[2021-08-27] MEDS: ceFAZolin 1GM/50ML 50 ML IV SCH ×3 (06:19→22:51)
[2021-08-27] MEDS: PROPOFOL 100 ML IV SCH (07:27)
[2021-08-27] MEDS: ZINC SULFATE 220mg CAP or TAB PO SCH (10:00)
[2021-08-27] MEDS: FAMOTIDINE (10MG/ML) 2ML VL IV SCH ×2 (10:00→22:51)
[2021-08-27] MEDS: DexAMETHasone SOD PHOS 10MG/1ML VIAL INJ IV SCH (10:00)
[2021-08-27] MEDS: CHOLECALCIFEROL (VITD3) 2,000 UNIT CAP/TAB PO SCH (10:00)
[2021-08-27] MEDS: ASCORBIC ACID 1,000 MG TAB PO SCH (10:00)
[2021-08-27] MEDS: MIDAZOLAM DRIP 50 mg/50mL 50 ML IV SCH (12:15)
[2021-08-27] MEDS: NOREPINEPHRINE 8 MG/250ML KIT 250 ML IV SCH ×2 (13:07→13:08)
[2021-08-27] MEDS ORDERED: D5W/SOD CHLO 0.9% 1,000 ML IV ONE (13:45)
[2021-08-28] VITALS (8 sets, daily range): BP systolic 101–147; BP diastolic 64–79
[2021-08-28] MEDS: LORazepam 0.5 MG TAB PO PRN (01:41)
[2021-08-28] MEDS: ENOXAPARIN SOD 150 MG/1 ML SYRINGE SC SCH (02:43)
[2021-08-28] MEDS ORDERED: dilTIAZem 25 MG/5 ML VIAL IV ONE ×3 (03:29→05:00)
[2021-08-28] MEDS ORDERED: METOPROLOL TARTRATE 1MG/1ML-5ML VIAL IV PRN ×2 (04:09→04:30)
[2021-08-28] MEDS ORDERED: LORazepam 2MG/ML-1ML VIAL ONE (05:29)
[2021-08-28] MEDS ORDERED: LORazepam 2MG/ML-1ML VIAL IV PRN (05:30)
[2021-08-28] MEDS ORDERED: METOPROLOL TARTRATE 1MG/1ML-5ML VIAL IV ONE ×3 (05:30→06:00)
[2021-08-28] MEDS: ceFAZolin 1GM/50ML 50 ML IV SCH (05:56)
[2021-08-28 09:22] LABS: Calcium 9.5 mg/dL (8.5-10.1); Magnesium 2.9 mg/dL (1.6-2.6); Potassium 4.2 mmol/L (3.5-5.1)
[2021-08-28 09:24] LABS: BUN/Creatinine Ratio 22.7
[2021-08-28] MEDS: DexAMETHasone SOD PHOS 10MG/1ML VIAL INJ IV SCH (09:48)
[2021-08-28] MEDS: METOPROLOL TARTRATE 50 MG TAB PO SCH ×2 (09:48→22:01)
[2021-08-28] MEDS: FAMOTIDINE (10MG/ML) 2ML VL IV SCH (09:48)
[2021-08-28] MEDS: ACETAMINOPHEN 325 MG TAB PO PRN (09:49)
[2021-08-28] MEDS: ZINC SULFATE 220mg CAP or TAB PO SCH (10:00)
[2021-08-28] MEDS: ASCORBIC ACID 1,000 MG TAB PO SCH (10:00)
[2021-08-28] MEDS ORDERED: METOPROLOL TARTRATE 25 MG TAB PO SCH (10:00)
[2021-08-28] MEDS: CHOLECALCIFEROL (VITD3) 2,000 UNIT CAP/TAB PO SCH (10:00)
[2021-08-28] MEDS ORDERED: MEROPENEM 1GM IVPB 100 ML IV ONE (13:30)
[2021-08-28] MEDS ORDERED: ENOXAPARIN SOD 40 MG/0.4 ML SYRINGE SC ONE (13:30)
[2021-08-28] MEDS ORDERED: ceFAZolin 1GM/50ML 50 ML IV ONE (13:45)
[2021-08-28] MEDS: SOD CHL 0.45% 1,000 ML IV SCH (14:11)
[2021-08-28] MEDS ORDERED: ceFAZolin 1GM/50ML 50 ML IV SCH (17:00)
[2021-08-28 20:21] LABS: Urine Bacteria NONE SEEN /hpf (None Seen); Urine Blood 3+ /uL (Negative); Urine Budding Yeast OCCASIONAL /hpf (None Seen); Urine Mucus FEW (None Seen); Urine Specific Gravity 1.011 (1.001-1.035); Urine WBC 126 /hpf (0 - 3)
[2021-08-28 20:40] LABS: Protein, Urine 448.7 mg/dL (0.0-11.9)
[2021-08-28] MEDS: MEROPENEM 1GM IVPB 100 ML IV SCH (22:01)
[2021-08-29] MEDS: SENNA 8.6 MG TAB PO PRN (01:45)
[2021-08-29 05:00] VITALS: BP 111/65
[2021-08-29] MEDS ORDERED: dilTIAZem 25 MG/5 ML VIAL IV ONE ×2 (05:15→05:45)
[2021-08-29] MEDS: SOD CHL 0.45% 1,000 ML IV SCH (05:37)
[2021-08-29] MEDS: MEROPENEM 1GM IVPB 100 ML IV SCH (05:42)
[2021-08-29 07:05] LABS: Eosinophils # (auto) 0 10 ^3/uL (0-0.8); Mean Corpuscular Hgb Conc. 32.8 g/dL (32.0-36.0); Monocytes # (auto) 0.8 10 ^3/uL (0-1.3); Red Cell Distribution Width 16.5 % (11.8-14.3)
[2021-08-29 07:09] LABS: Basophils # (auto) 0 10 ^3/uL (0-0.2); Basophils % (auto) 0.1 % (0.0-2.0); Hematocrit 42.6 % (41.0-53.0); Hemoglobin 13.9 g/dL (13.5-17.5); Lymphocytes # (auto) 1.8 10 ^3/uL (0.4-5.4); Lymphocytes % (auto) 8.1 % (10.0-50.0); Mean Corpuscular Hemoglobin 29.2 pg (28.0-32.0); Mean Corpuscular Volume 89.2 fL (80.0-100.0); Monocytes % (auto) 3.6 % (0.0-12.0); Neutrophils # (auto) 19.9 10 ^3/uL (1.6-8.6); Neutrophils % (auto) 88.2 % (37.0-80.0); Nucleated Red Blood Cells % 0.2 %; Red Blood Cells 4.77 10^6/uL (4.5-5.90); White Blood Cell 22.6 10^3/uL (4.4-10.8)
[2021-08-29 07:18] LABS: BUN/Creatinine Ratio 14.8; Calcium 9.6 mg/dL (8.5-10.1); Potassium 5.3 mmol/L (3.5-5.1)
[2021-08-29 09:00] VITALS: BP 95/62
[2021-08-29 09:32] VITALS: BP 94/94
[2021-08-29] MEDS ORDERED: FAMOTIDINE (10MG/ML) 2ML VL IV SCH (10:00)
[2021-08-29] MEDS ORDERED: ENOXAPARIN SOD 40 MG/0.4 ML SYRINGE SC SCH (10:00)
[2021-08-29] MEDS ORDERED: levoFLOXacin 750MG 150 ML IV SCH (10:00)
[2021-08-29] MEDS: METOPROLOL TARTRATE 50 MG TAB PO SCH (10:13)
[2021-08-29] MEDS: CHOLECALCIFEROL (VITD3) 2,000 UNIT CAP/TAB PO SCH (10:13)
[2021-08-29] MEDS ORDERED: diphenhdrAMINE HCL 50 MG/1 ML VL IV ONE ×2 (10:30→10:45)
[2021-08-29] MEDS ORDERED: LORazepam 0.5 MG TAB PO PRN (10:45)
[2021-08-29] MEDS ORDERED: ENOXAPARIN SOD 120 MG/0.8 ML SYRINGE SC ONE (10:45)
[2021-08-29] MEDS ORDERED: FUROSEMIDE 20 MG/2 ML VIAL IV ONE (10:45)
[2021-08-29] MEDS ORDERED: D5W/SOD CHL 0.45% 1,000 ML IV SCH (11:00)
[2021-08-29] MEDS ORDERED: SODIUM ZIRCONIUM CYCL 10 GM PAK PO ONE (11:15)
[2021-08-29] MEDS ORDERED: SODIUM CHLORIDE 0.9% 1,000 ML IV ONE (12:00)
[2021-08-29 13:00] VITALS: BP 118/87
[2021-08-29] MEDS ORDERED: LORazepam 2MG/ML-1ML VIAL IV PRN (13:45)
[2021-08-29] MEDS ORDERED: FUROSEMIDE 100 MG/10ML VIAL IV ONE (15:45)
[2021-08-29 17:50] VITALS: BP 92/33
[2021-08-29] MEDS ORDERED: MEROPENEM 1GM IVPB 100 ML IV SCH (18:00)
[2021-08-29] MEDS ORDERED: MIDAZOLAM DRIP 50 mg/50mL 0 ML IV ONE (18:15)
[2021-08-29] MEDS ORDERED: SODIUM BICARBONATE 8.4% INJ 50ML SYRINGE IV ONE (18:46)
[2021-08-29] MEDS ORDERED: EPINEPHrine HCL 1 MG/10 ML SYRG IV ONE (18:46)
[2021-08-29] MEDS ORDERED: CALCIUM CHLOR(10%) 100MG/ML 10ML SYRINGE IV ONE (18:46)
[2021-08-30] MEDS ORDERED: FUROSEMIDE 20 MG/2 ML VIAL IV SCH (10:00)
[2021-08-30] MEDS ORDERED: ENOXAPARIN SOD 150 MG/1 ML SYRINGE SC SCH (10:00)
[2021-08-30] MEDS ORDERED: FUROSEMIDE 100 MG/10ML VIAL IV SCH (10:00)
[2021-08-31] MEDS ORDERED: levoFLOXacin 750MG 150 ML IV SCH (10:00)
== END 2021-08-29 22:49 | DRG 720 ==
LOC: ER 01:03 → EDBD 01:03 → TELE 12:49 → ICU WEST 21:11 → TELE-EAST 08-27 14:05
PROVIDERS: ADMIT Hospitalist; ATTEND Internal Medicine Pulmonary Disease
PROC: 5A1955Z Respiratory Ventilation, Greater than 96 Consecutive Hours (ICD-10-PCS; principal; 2021-08-17)
PROC: 5A09357 Assistance with Respiratory Ventilation, Less than 24 Consecutive Hours, Continuous Positive Airway Pressure (ICD-10-PCS; 2021-08-17)
PROC: 0BH17EZ Insertion of Endotracheal Airway into Trachea, Via Natural or Artificial Opening (ICD-10-PCS; 2021-08-17)
PROC: 02HV33Z Insertion of Infusion Device into Superior Vena Cava, Percutaneous Approach (ICD-10-PCS; 2021-08-17)
PROC: B548ZZA Ultrasonography of Superior Vena Cava, Guidance (ICD-10-PCS; 2021-08-17)
PROC: 5A09357 Assistance with Respiratory Ventilation, Less than 24 Consecutive Hours, Continuous Positive Airway Pressure (ICD-10-PCS; 2021-08-26)
PROC: 5A09357 Assistance with Respiratory Ventilation, Less than 24 Consecutive Hours, Continuous Positive Airway Pressure (ICD-10-PCS; 2021-08-27)
PROC: 5A09357 Assistance with Respiratory Ventilation, Less than 24 Consecutive Hours, Continuous Positive Airway Pressure (ICD-10-PCS; 2021-08-28)
PROC: 5A09357 Assistance with Respiratory Ventilation, Less than 24 Consecutive Hours, Continuous Positive Airway Pressure (ICD-10-PCS; 2021-08-29)
PROC: 5A12012 Performance of Cardiac Output, Single, Manual (ICD-10-PCS; 2021-08-29)
DX: A41.89 Other specified sepsis (principal); I46.9 Cardiac arrest, cause unspecified; J96.21 Acute and chronic respiratory failure with hypoxia; J12.82 Pneumonia due to coronavirus disease 2019; G93.41 Metabolic encephalopathy; J15.211 Pneumonia due to Methicillin susceptible Staphylococcus aureus; J15.5 Pneumonia due to Escherichia coli; D68.59 Other primary thrombophilia; U07.1 COVID-19; E88.09 Other disorders of plasma-protein metabolism, not elsewhere classified; D89.839 Cytokine release syndrome, grade unspecified; E66.2 Morbid (severe) obesity with alveolar hypoventilation; R65.20 Severe sepsis without septic shock; N18.31 Chronic kidney disease, stage 3a; J96.22 Acute and chronic respiratory failure with hypercapnia; J98.11 Atelectasis; Z68.43 Body mass index [BMI] 50.0-59.9, adult; E78.5 Hyperlipidemia, unspecified; E87.5 Hyperkalemia; I48.91 Unspecified atrial fibrillation; E87.0 Hyperosmolality and hypernatremia; Z99.11 Dependence on respirator [ventilator] status
CPT/HCPCS: 36415; 36600; 71045; 76775; 80048; 80053; 80061; 80307; 81001; 82306; 82570; 82728; 82805; 82962; 83036; 83605; 83615; 83735; 83880; 84100; 84156; 84300; 84443; 84484; 84550; 85025; 85379; 85610; 85730; 86141; 87040; 87070; 87077; 87081; 87086; 87186; 87205; 87426; 92950; 93005; 93306; 93970; 94002; 94003; 94660; 96365; 96366; 96368; 96375; 97110; 97162; 99291; G0378; J0330; J0690; J0696; J1100; J1956; J2185; J2250; J2543; J2704; J3490; J7042; J7060; P9047